=== PATIENT | male | born 1975 | race Caucasian/White ===

== ENCOUNTER 2018-02-17 11:30 | Emergency (ER) | payer BC, OTHER ==
[2018-02-17] MEDS ORDERED: Sodium Chloride 0.9% 10 ML Syringe FLUSH PRN (11:44)
--- NOTE | 2018-02-17 11:57 | EDM.PDOC ---
ED HPI GENERAL MEDICAL PROBLEM - General Chief Complaint: Abdominal Pain Stated Complaint: ABDOMINAL PAIN Time Seen by Provider: 02/17/18 11:47 Source of Information: Reports: Patient History Limitations: Reports: No Limitations - History of Present Illness INITIAL COMMENTS - FREE TEXT/NARRATIVE: Presents with left sided abdominal pain x 5 days, which coincided with onset of cough (for which patient was prescribed Levaquin). Pain has progressively worsened over the last 2 days, abdomen feel swollen. Has nausea, no vomiting or diarrhea. History of mechanical aortic valve replacement (2013, 2015), is on coumadin. Also h/o umbilical hernia repair (4-5 years ago). Onset: Today Duration: Day(s): (5) Location: Reports: Abdomen Quality: Reports: Dull Severity: Moderate Improves with: Reports: None Worsens with: Reports: None Abdominal Pain Score (Numeric/FACES): 10 - Related Data Allergies Allergy/AdvReac Type Severity Reaction Status Date / Time No Known Allergies Allergy Verified 04/28/13 13:08 Home Meds: Home Meds Ranitidine HCl [Acid Export Clerk] 75 mg PO DAILY 04/30/13 [History] Albuterol [Ventolin HFA] 1 inhaler PO DAILY 02/17/18 [History] Ascorbic Acid [Vitamin C] 500 mg PO DAILY 02/17/18 [History] Aspirin 81 mg PO DAILY 02/17/18 [History] Levofloxacin 750 mg PO DAILY 02/17/18 [History] Phytonadione [Vitamin K] 100 mcg PO DAILY 02/17/18 [History] Warfarin Sodium [Jantoven] 5 mg PO DAILY 02/17/18 [History] Zinc 50 mg PO DAILY 02/17/18 [History] Past Medical History Cardiovascular History: Reports: Other (See Below) (congenital aortic valve malformation) Respiratory History: Reports: Asthma - Past Surgical History Cardiovascular Surgical History: Reports: Valve Replacement (mechanical aortic) GI Surgical History: Reports: Hernia, Abdominal (umbilical). Denies: Appendectomy, Cholecystectomy Social & Family History - Tobacco Use Smoking Status *Q: Former Smoker Tobacco Use Within Last Twelve Months: Cigarettes - Alcohol Use Alcohol Use History: Yes Alcohol Use Frequency: Socially - Recreational Drug Use Recreational Drug Use: No ED ROS GENERAL - Review of Systems Review Of Systems: See Below Constitutional: Reports: No Symptoms HEENT: Reports: No Symptoms Respiratory: Reports: Cough. Denies: Shortness of Breath Cardiovascular: Reports: No Symptoms Endocrine: Reports: No Symptoms GI/Abdominal: Reports: Abdominal Pain, Nausea. Denies: Diarrhea, Hematochezia, Melena, Vomiting : Reports: No Symptoms Musculoskeletal: Reports: No Symptoms Skin: Reports: No Symptoms Neurological: Reports: No Symptoms Psychiatric: Reports: No Symptoms Hematologic/Lymphatic: Reports: No Symptoms Immunologic: Reports: No Symptoms ED EXAM, GI/ABD - Physical Exam Exam: See Below Exam Limited By: No Limitations General Appearance: Alert, WD/WN, No Apparent Distress Ears: Normal External Exam Nose: Normal Inspection Throat/Mouth: No Airway Compromise Head: Atraumatic, Normocephalic Neck: Full Range of Motion Respiratory/Chest: No Respiratory Distress, Lungs Clear, Normal Breath Sounds Cardiovascular: Regular Rate, Rhythm, Other GI/Abdominal Exam: Soft, Distended, Tender (moderate left sided) Back Exam: Full Range of Motion Neurological: Alert, Normal Cognition, No Motor/Sensory Deficits Psychiatric: Normal Affect, Normal Mood Skin Exam: Warm, Dry, Intact, Normal Color Course - Vital Signs Last Recorded V/S: Last Vital Signs Temp 36.6 C 02/17/18 11:48 Pulse 91 02/17/18 11:48 Resp 18 02/17/18 11:48 BP 139/85 02/17/18 11:48 Pulse Ox 99 02/17/18 11:48 - Orders/Labs/Meds Orders: Active Orders 24 hr Category Date Time Status Abdomen Pelvis w Cont [CT] Stat Exams 02/17/18 12:34 Taken CXR [Chest 2V] [CR] Stat Exams 02/17/18 12:35 Taken TYPE AND SCREEN [BBK] Stat Lab 02/17/18 12:00 Received Phytonadione [AquaMephyton] 10 mg Med 02/17/18 13:06 Active Sodium Chloride 0.9% [Normal Saline] 50 ml IV NOW Sodium Chloride 0.9% [Normal Saline] 1,000 ml Med 02/17/18 12:00 Active IV ASDIRECTED Sodium Chloride 0.9% [Saline Flush] Med 02/17/18 11:44 Active 10 ml FLUSH ASDIRECTED PRN Saline Lock Insert [OM.PC] Routine Oth 02/17/18 11:44 Ordered Medication Orders Sodium Chloride (Normal Saline) 1,000 mls @ 150 mls/hr IV ASDIRECTED BRITANY Last Admin: 02/17/18 12:15 Dose: 150 mls/hr Phytonadione 10 mg/ Sodium (Chloride) 51 mls @ 100 mls/hr IV NOW ONE Stop: 02/17/18 13:36 Last Admin: 02/17/18 13:23 Dose: 100 mls/hr Sodium Chloride (Saline Flush) 10 ml FLUSH ASDIRECTED PRN PRN Reason: Keep Vein Open Last Admin: 02/17/18 12:14 Dose: 10 ml Labs: Laboratory Tests 02/17/18 02/17/18 02/17/18 Range/Units 12:00 12:00 12:00 WBC 15.8 H (4.5-12.0) X10-3/uL RBC 4.83 (4.30-5.75) x10(6)uL Hgb 14.2 (11.5-15.5) g/dL Hct 41.9 (30.0-51.3) % MCV 86.9 (80-96) fL MCH 29.4 (27.7-33.6) pg MCHC 33.9 (32.2-35.4) g/dL RDW 14.3 (11.5-15.5) % Plt Count 329 (125-369) X10(3)uL MPV 7.3 L (7.4-10.4) fL Neut % (Auto) 69.7 (46-82) % Lymph % (Auto) 19.6 (13-37) % [place] % (Auto) 8.6 (4-12) % Eos % (Auto) 0 L (1.0-5.0) % Baso % (Auto) 2 (0-2) % Neut # (Auto) 11.0 H (1.6-8.3) # Lymph # (Auto) 3.1 (0.6-5.0) # [place] # (Auto) 1.4 H (0.0-1.3) # Eos # (Auto) 0.0 (0.0-0.8) # Baso # (Auto) 0.3 H (0.0-0.2) # PT 44.4 H* (8.7-11.1) INR 4.65 H* (0.89-1.13) Sodium (135-145) mmol/L Potassium (3.5-5.3) mmol/L Chloride (100-110) mmol/L Carbon Dioxide (21-32) mmol/L BUN (7-18) mg/dL Creatinine (0.70-1.30) mg/dL Est Cr Clr Drug Dosing mL/min Estimated GFR (MDRD) (>60) BUN/Creatinine Ratio (9-20) Glucose (80-116) mg/dL Calcium (8.6-10.2) mg/dL Total Bilirubin (0.1-1.3) mg/dL AST (5-25) IU/L ALT (12-36) U/L Alkaline Phosphatase (56-112) IU/L Total Protein (6.0-8.0) g/dL Albumin (3.5-5.2) g/dL Globulin g/dL Albumin/Globulin Ratio Amylase (25-115) U/L Urine Color Yellow (YELLOW) Urine Appearance Clear (CLEAR) Urine pH 5.0 (5.0-6.5) Ur Specific [place] 1.025 (1.010-1.025) Urine Protein Negative (NEGATIVE) mg/dL Urine Glucose (UA) Normal (NEGATIVE) mg/dL Urine Ketones Negative (NEGATIVE) mg/dL Urine Occult Blood Negative (NEGATIVE) Urine Nitrite Negative (NEGATIVE) Urine Bilirubin Negative (NEGATIVE) Urine Urobilinogen Normal (NEGATIVE) mg/dL Ur Leukocyte Esterase Negative (NEGATIVE) Urine RBC Not seen (0) Urine WBC 0-5 (0) Ur Squamous Epith Cells Occasional (NS,R,O) Urine Bacteria Few H (NS) Urine Mucus Many H (NS) 02/17/18 Range/Units 12:00 WBC (4.5-12.0) X10-3/uL RBC (4.30-5.75) x10(6)uL Hgb (11.5-15.5) g/dL Hct (30.0-51.3) % MCV (80-96) fL MCH (27.7-33.6) pg MCHC (32.2-35.4) g/dL RDW (11.5-15.5) % Plt Count (125-369) X10(3)uL MPV (7.4-10.4) fL Neut % (Auto) (46-82) % Lymph % (Auto) (13-37) % [place] % (Auto) (4-12) % Eos % (Auto) (1.0-5.0) % Baso % (Auto) (0-2) % Neut # (Auto) (1.6-8.3) # Lymph # (Auto) (0.6-5.0) # [place] # (Auto) (0.0-1.3) # Eos # (Auto) (0.0-0.8) # Baso # (Auto) (0.0-0.2) # PT (8.7-11.1) INR (0.89-1.13) Sodium 137 (135-145) mmol/L Potassium 3.4 L (3.5-5.3) mmol/L Chloride 100 (100-110) mmol/L Carbon Dioxide 31 (21-32) mmol/L BUN 14 (7-18) mg/dL Creatinine 1.0 (0.70-1.30) mg/dL Est Cr Clr Drug Dosing 100.38 mL/min Estimated GFR (MDRD) > 60 (>60) BUN/Creatinine Ratio 14.0 (9-20) Glucose 102 (80-116) mg/dL Calcium 8.7 (8.6-10.2) mg/dL Total Bilirubin 0.6 (0.1-1.3) mg/dL AST 31 H (5-25) IU/L ALT 59 H (12-36) U/L Alkaline Phosphatase 60 (56-112) IU/L Total Protein 7.3 (6.0-8.0) g/dL Albumin 3.4 L (3.5-5.2) g/dL Globulin 3.9 g/dL Albumin/Globulin Ratio 0.9 Amylase 42 (25-115) U/L Urine Color (YELLOW) Urine Appearance (CLEAR) Urine pH (5.0-6.5) Ur Specific [place] (1.010-1.025) Urine Protein (NEGATIVE) mg/dL Urine Glucose (UA) (NEGATIVE) mg/dL Urine Ketones (NEGATIVE) mg/dL Urine Occult Blood (NEGATIVE) Urine Nitrite (NEGATIVE) Urine Bilirubin (NEGATIVE) Urine Urobilinogen (NEGATIVE) mg/dL Ur Leukocyte Esterase (NEGATIVE) Urine RBC (0) Urine WBC (0) Ur Squamous Epith Cells (NS,R,O) Urine Bacteria (NS) Urine Mucus (NS) Meds: Medications Generic Name Dose Route Start Last Admin Trade Name Freq PRN Reason Stop Dose Admin Sodium Chloride 1,000 mls @ 150 mls/hr 02/17/18 12:00 02/17/18 12:15 Normal Saline IV 150 mls/hr ASDIRECTED BRITANY Administration Phytonadione 10 mg/ Sodium 51 mls @ 100 mls/hr 02/17/18 13:06 02/17/18 13:23 Chloride IV 02/17/18 13:36 100 mls/hr NOW ONE Administration Sodium Chloride 10 ml 02/17/18 11:44 02/17/18 12:14 Saline Flush FLUSH 10 ml ASDIRECTED PRN Administration Keep Vein Open Discontinued Medications Generic Name Dose Route Start Last Admin Trade Name Freq PRN Reason Stop Dose Admin Hydromorphone HCl 1 mg 02/17/18 11:58 02/17/18 12:09 Dilaudid IVPUSH 02/17/18 11:59 1 mg ONETIME ONE Administration Iopamidol 100 ml 02/17/18 12:41 02/17/18 12:59 Isovue-370 (76%) IV 02/17/18 12:42 100 ml . DIRECTED ONE Administration Ondansetron HCl 4 mg 02/17/18 11:58 02/17/18 12:10 Zofran IVPUSH 02/17/18 11:59 4 mg ONETIME ONE Administration Phytonadione Confirm 02/17/18 13:20 Aquamephyton Administered 02/17/18 13:21 Dose 10 mg .ROUTE .[facility] ONE - Radiology Interpretation Free Text/Narrative:: CT Abd/Pelvis w/ IV contrast: Moderately large-sized diffuse acute hematoma involving the left rectus sheath musculature with a small site of active bleeding which could be arterial or venous. Trace amount of free fluid or hemorrhagic products posterior to left pelvic rectus sheath musculature. 2.2cm right mid kidney mass. Small left inguinal hernia containing only fat. - Re-Assessments/Exams Free Text/Narrative Re-Assessment/Exam: 02/17/18 13:30 Dr. Spears recommends [facility] transfer for embolization procedure. 02/17/18 14:22 Dr. Rosales accepts patient for transfer to [facility]. Recommends transfusion of 2 units FFP prior to transfer. Departure - Departure Time of Disposition: 14:23 Disposition: DC/Tfer to Acute Hospital 02 Condition: Fair Clinical Impression: Warfarin-induced coagulopathy Rectus sheath hematoma Qualifiers: Encounter type: initial encounter Qualified Code(s): S30.1XXA - Contusion of abdominal wall, initial encounter - Discharge Information Referrals: Venancio Miles MD [Primary Care Provider] - Forms: ED Department Discharge - My Orders Last 24 Hours: My Active Orders 02/17/18 11:44 Sodium Chloride 0.9% [Saline Flush] 10 ml FLUSH ASDIRECTED PRN Saline Lock Insert [OM.PC] Routine 02/17/18 12:00 TYPE AND SCREEN [BBK] Stat Sodium Chloride 0.9% [Normal Saline] 1,000 ml IV ASDIRECTED 02/17/18 12:34 Abdomen Pelvis w Cont [CT] Stat 02/17/18 12:35 CXR [Chest 2V] [CR] Stat 02/17/18 13:06 Phytonadione [AquaMephyton] 10 mg Sodium Chloride 0.9% [Normal Saline] 50 ml IV NOW - Assessment/Plan Last 24 Hours: My Active Orders 02/17/18 11:44 Sodium Chloride 0.9% [Saline Flush] 10 ml FLUSH ASDIRECTED PRN Saline Lock Insert [OM.PC] Routine 02/17/18 12:00 TYPE AND SCREEN [BBK] Stat Sodium Chloride 0.9% [Normal Saline] 1,000 ml IV ASDIRECTED 02/17/18 12:34 Abdomen Pelvis w Cont [CT] Stat 02/17/18 12:35 CXR [Chest 2V] [CR] Stat 02/17/18 13:06 Phytonadione [AquaMephyton] 10 mg Sodium Chloride 0.9% [Normal Saline] 50 ml IV NOW
[2018-02-17] MEDS ORDERED: HYDROmorphone 2 MG/ML SDV IVPUSH ONE ×2 (11:58→13:57)
[2018-02-17] MEDS ORDERED: Ondansetron 4 MG/2 ML SDV IVPUSH ONE (11:58)
[2018-02-17] MEDS ORDERED: Sodium Chloride 0.9% 1,000 ML IV SCH (12:00)
[2018-02-17] MEDS ORDERED: Iopamidol 755 Mg/ML 100 ML Bottle IV ONE (12:41)
[2018-02-17] MEDS ORDERED: Phytonadione 10 MG in Sodium Chloride 0.9% 50 ML IV ONE (13:06)
[2018-02-17] MEDS ORDERED: Sodium Chloride 0.9% 250 ML IV SCH (14:15)
[2018-02-17 15:32] VITALS: BP 124/88
--- NOTE | 2018-02-19 14:44 | CR ---
INDICATION: Cough. CHEST, PA AND LATERAL VIEWS: FINDINGS: No comparison imaging. There is some scarring or atelectasis of the left lung base. The lungs and pleural spaces otherwise look clear. Apparent previous midline sternotomy. I believe there has been previous aortic valve surgery. No CHF. There is some mild degenerative end plate change and spurring throughout the thoracic spine. There are minimal chronic appearing compression deformities in the thoracic spine. IMPRESSION: No acute abnormality is seen. No CHF or pneumonia. MTDD
== END 2018-02-17 15:45 ==
LOC: FB.ED 11:30
DX: S30.1XXA Contusion of abdominal wall, initial encounter (principal); D68.9 Coagulation defect, unspecified; Z79.899 Other long term (current) drug therapy; Z87.891 Personal history of nicotine dependence; X58.XXXA Exposure to other specified factors, initial encounter
CPT/HCPCS: 36415; 36430; 71046; 74177; 80053; 81001; 82150; 85025; 85610; 86850; 86900; 86901; 96361; 96365; 96375; 96376; 99285; J1170; J2405; J3430; J7030; J7050; P9017; Q9967